=== PATIENT | female | born 1940 | race Caucasian/White ===

== ENCOUNTER → 2018-09-11 11:03 | Outpatient (CLI) | payer MEDICARE, BC, SELFPAY ==
[2014-01-08 12:18] VITALS: BMI 23.5
[2018-09-11 12:56] LABS: Anion Gap 11 (5-15); BUN 21 mg/dL (7-18); BUN/Creat Ratio 23.4 RATIO (10-20); Calcium,Total 9.3 mg/dL (8.5-10.1); Chloride 104 mmol/L (98-107); Cholesterol 275 mg/dL (200); EST Glomerular Filtration Rate 65 mL/min (>60); Est Glom Filt Rate - Afr Amer 79 mL/min (>60); Glucose 88 mg/dL (74-106); High Density Lipoprotein 90 mg/dL; Potassium 4.4 mmol/L (3.5-5.1); Sodium Level 141 mmol/L (136-145); Triglycerides 131 mg/dL; Very Low Density Lipoprotein 26 mg/dL (5-40)
== END ==
PROVIDERS: Family Provider Family Medicine; PCP Family Medicine; Visit Provider Family Medicine
DX: Z00.00 Encounter for general adult medical examination without abnormal findings (principal)
CPT/HCPCS: 36415; 80048; 80061; 84443

== ENCOUNTER → 2018-09-15 16:41 | Outpatient (CLI) | payer MEDICARE, BC, SELFPAY ==
--- NOTE | 2018-09-15 16:45 | BI_ITS ---
MAMMOGRAPHY - BILATERAL SCREENING REASON FOR EXAM: Female, 78 years old. Routine annual screening examination. PERTINENT HISTORY: Non-contributory. TECHNIQUE: Digital bilateral breast phuong (3D mammographic acquisition) in the CC and MLO projections. 2-D mediolateral oblique (MLO) and craniocaudad (CC) views of both breasts were obtained. CAD: Full Field Digital Mammography with Computer Added Detection was performed. COMPARISON: Comparison is made with prior study dated June 29, 2017 and September 11, 2010. FINDINGS: Breast Composition: There are scattered areas of fibroglandular density. There are no dominant masses or suspicious calcifications. Stable small bilateral axillary lymph nodes. No other significant abnormalities are identified. There has been no significant change since the prior study. BI/SCREENING MAMM (CAD), BILAT IMPRESSION: Stable bilateral screening mammogram. Yearly follow-up mammogram recommended. (A) ASSESSMENT CATEGORY: BIRADS Category 2: Benign. A letter regarding these results will be sent to the patient by the facility within 30 days. Approximately 10% of breast cancers are not detected by mammography. A normal mammogram should not delay biopsy of a clinically suspicious abnormality. [id number] Electronically Signed: Goyo Rajput MD at 9:37 EST Tel [phone], Service support ,
== END ==
PROVIDERS: Family Provider Family Medicine; PCP Family Medicine; Referring Provider Family Medicine; Visit Provider Family Medicine
DX: Z12.31 Encounter for screening mammogram for malignant neoplasm of breast (principal)
CPT/HCPCS: 77063; 77067

== ENCOUNTER 2020-10-25 12:34 | Outpatient (RCR) | payer MEDICARE, BC, SELFPAY ==
[2014-01-08 12:18] VITALS: BMI 23.5
== END 2020-10-25 23:59 ==
LOC: IMMUN 12:34
PROVIDERS: PCP Family Medicine; Visit Provider Family Medicine
DX: Z23 Encounter for immunization (principal)
CPT/HCPCS: 0011A; 0012A; 91301

== ENCOUNTER → 2021-03-05 09:56 | Outpatient (CLI) | payer MEDICARE, BC, SELFPAY ==
[2014-01-08 12:18] VITALS: BMI 23.5
[2021-03-05 11:58] LABS: Absolute Lymphocyte Count 1.66 X10^3/uL (0.83-4.51); Basophil# 0.06 X10^3/uL; Basophil% 0.9 % (0-1); Eosinophil# 0.42 X10^3/uL; Eosinophils% 6.4 % (0-5); Hematocrit 40.2 % (37-47); Hemoglobin 12.7 g/dL (12.0-15.0); Lymphocyte # 1.66 X10^3/ul (0.83-4.51); Lymphocyte % 25.2 % (19-41); Mean Corp Hgb Conc 31.6 g/dL (32-36); Mean Corpuscular Hgb 29.3 pg (27.0-32.0); Mean Corpuscular Volume 92.6 fL (81-99); Mean Platelet Vol. 9.5 fl (6.2-12.0); Monocyte# 0.42 X10^3/uL; Monocyte% 6.4 % (0-10); NRBC Flagged by Analyzer 0 % (0-5); Neutrophil # 4.01 X10^3/uL (2.7-7.7); Neutrophil % 60.8 % (47-70); Platelet Count 338 K/mm3 (150-450); RBC Distribution Width CV 13.1 % (11.6-14.6); RBC Distribution Width SD 44.1 fl (35.1-43.9); Red Blood Count 4.34 M/mm3 (4.2-5.4); White Blood Count 6.6 K/mm3 (4.4-11.0)
[2021-03-05 12:23] LABS: ALB/GLOB Ratio 0.8 RATIO (0.9-2.4); AST(SGOT) 17 U/L (15-37); Alanine Aminotransfer ALT/SGPT 17 U/L (13-56); Albumin, Serum 3.3 g/dL (3.2-5.0); Alkaline Phosphatase 66 U/L (45-117); Anion Gap 3 (5-15); BUN 19 mg/dL (7-18); BUN/Creat Ratio 19.5 RATIO (10-20); Calcium,Total 9.5 mg/dL (8.5-10.1); Chloride 106 mmol/L (98-107); Cholesterol 237 mg/dL (200); Creatinine, Serum 0.97 mg/dL (0.55-1.02); EST Glomerular Filtration Rate 59 mL/min (>60); Est Glom Filt Rate - Afr Amer 71 mL/min (>60); Globulin 4.2 g/dL (2.2-4.2); Glucose 86 mg/dL (74-106); High Density Lipoprotein 77 mg/dL; Potassium 4.3 mmol/L (3.5-5.1); Protein, Total 7.5 g/dL (6.4-8.2); Sodium Level 140 mmol/L (136-145); Triglycerides 100 mg/dL; Very Low Density Lipoprotein 20 mg/dL (5-40)
== END ==
PROVIDERS: PCP Family Medicine; Referring Provider Registered Nurse; Visit Provider Registered Nurse
DX: Z00.00 Encounter for general adult medical examination without abnormal findings (principal)
CPT/HCPCS: 36415; 80053; 80061; 85025

== ENCOUNTER → 2021-08-09 09:06 | Outpatient (CLI) | payer MEDICARE, BC, SELFPAY ==
--- NOTE | 2021-08-09 09:08 | RAD_ITS ---
STUDY: X-RAY CHEST REASON FOR EXAM: Female, 80 years old. right rib pain TECHNIQUE: PA and lateral views of the chest. COMPARISON: None. FINDINGS: There is hyperinflation of the lungs consistent with chronic obstructive lung disease (COPD). Chronic interstitial lung disease in the lung bases. Probable scarring in the lung bases Normal size heart. Normal mediastinum and kelly. Normal visualized pulmonary arteries. Normal visualized aortic arch and descending thoracic aorta. Normal visualized thoracic spine. Normal visualized ribs, clavicles, and shoulders. There is no demonstrated abnormality of the visualized soft tissue structures of the upper abdomen. RAD/Chest PA and Lateral IMPRESSION: COPD without acute findings. No evidence of rib fracture Electronically Signed: Dennis Benavidez DO at 3:37 EST Tel , Service support ,
== END ==
PROVIDERS: PCP Family Medicine; Referring Provider Nurse Practitioner Family; Visit Provider Nurse Practitioner Family
DX: R07.81 Pleurodynia (principal)
CPT/HCPCS: 71046

== ENCOUNTER 2021-08-10 09:34 | Emergency (ER) | payer MEDICARE, BC, SELFPAY ==
[2021-08-10 09:35] VITALS: BP 116/64; PULSE 79; RESP 14; TEMP 36.1; O2SAT 98; BMI 24.8
--- NOTE | 2021-08-10 10:27 | CT_ITS ---
STUDY: CT ABDOMEN AND PELVIS WITHOUT CONTRAST REASON FOR EXAM: Female, 80 years old. Kidney Stone RADIATION DOSAGE (If Supplied By Facility): CTDIvol = ( 6.46 ) mGy, DLP = ( 309.21 ) mGycm TECHNIQUE: Transaxial images were obtained from the dome of the diaphragm to the symphysis pubis without oral contrast, and without intravenous contrast. Sagittal and coronal images were reconstructed. Individualized dose optimization techniques were used for this CT. COMPARISON: Comparison is made with prior study 01/08/2014. FINDINGS: Right basilar pulmonary infiltrate superimposed chronic interstitial fibrosis. Mild increased markings at the left lung base suggestive of scarring. The visualized portions of the heart are within normal limits. Normal liver. Mildly distended gallbladder. Normal spleen. Normal pancreas. Normal bilateral adrenal glands. Normal right kidney. Normal left kidney. Normal visualized stomach. Normal small intestine. Normal colon. The appendix is visualized and appears normal. There is diffuse atherosclerotic calcification of the abdominal aorta, without a demonstrated aneurysm. Normal inferior vena cava. Normal retroperitoneum. Normal urinary bladder. Normal abdominal wall. There are mild degenerative changes of the visualized lumbar spine. Minimal anterolisthesis of L4 on L5. CT/Abdomen/Pelvis without Cont IMPRESSION: Right basilar infiltrate superimposed on chronic bibasilar pulmonary scarring. Electronically Signed: Goyo Rajput MD at 13:29 EST , Service support ,
--- NOTE | 2021-08-10 10:31 | EDS_ITS ---
HPI HPI - GI History of Present Illness Chief Complaint: Back Narrative Narrative: Patient denies significant past medical history presents with her because of right-sided flank pain that began yesterday morning. She states the day before she felt fatigued and tired. Early morning she awoke with right-sided back pain. Today, it has moved to the front and started wrapping around. She denies any fevers or chills. No dysuria or hematuria. No nausea or vomiting. However, she did see the nurse practitioner at her primary care provider's office yesterday because of the pain, and a chest x-ray was obtained which was negative. She states that she coughed this morning a few times and had blood-tinged sputum. She denies any marisa hemoptysis. No shortness of breath. She is having pain more in the right flank. No prior surgeries to her abdomen. [facility] Medical History Pyelitis Shingles Home Medications ascorbate calcium (vitamin C) 500 mg PO DAILY 01/08/14 [History Last Taken Unknown] cholecalciferol (vitamin D3) [Vitamin D3] 1,000 unit PO DAILY 01/08/14 [History Last Taken Unknown] Allergy/AdvReac Type Severity Reaction Status Date / Time Sulfa (Sulfonamide Allergy Hives Verified 08/10/21 09:35 Antibiotics) Surgical History H/O hernia repair Social History Smoking Status: Former smoker ROS ROS ED ROS Narrative Constitutional: No fever, no chills. HEENT: No sore throat. No neck pain. No loss of vision. No rhinorrhea. Cardiovascular: No chest pain. No palpitations. No pedal edema. Respiratory: Positive cough, no shortness of breath. Positive blood-tinged sputum. Abdominal: Right-sided abdominal pain. No nausea. No vomiting. Genitourinary: No dysuria. No hematuria. Musculoskeletal: No myalgias. No arthralgias. Positive right back/flank pain. Neurologic: No headaches. No dizziness. No lightheadedness. Skin: No rash. No change in color. Psychiatric: No depression. No anxiety. EXAM Physical Exam Narrative Exam Narrative: Afebrile. Vital signs noted. HEENT: Normocephalic. Atraumatic. PERRL, EOMI. Neck soft and supple. No point tenderness or step off. Cardiovascular: Regular rate and rhythm. No murmurs, rubs, or gallops appreciated. Respiratory: No tachypnea. Lungs clear to auscultation bilaterally. No hemoptysis on examination. Gastrointestinal: Abdomen soft, minimal tenderness right flank, with normoactive bowel sounds. No rebound or guarding. Neurological: Awake. Alert. Nonfocal, nonlateralizing. Skin: No rash. Normal color. No pallor. Musculoskeletal: No pedal edema. Full range of motion extremities. Const Vital Signs: 08/10/21 09:35 08/10/21 12:00 Temperature 97 F L Temperature Source Temporal Pulse Rate 79 73 Respiratory Rate 14 16 Blood Pressure 116/64 119/93 H Blood Pressure Mean 81 101 Pulse Ox 98 96 Oxygen Delivery Method Room Air Room Air MDM MDM MDM Narrative Medical decision making narrative: Comprehensive work-up was pursued. I reviewed her x-ray from yesterday. There is evidence of COPD, but no infiltrate. She may have more of a bronchitis. She will be swabbed for Covid. Her pulse ox is 98% on room air. Regarding her right back and flank pain, suspicion is high for ureterolithiasis given the radiation of pain towards the front. Basic laboratory work, urinalysis, and CT of the abdomen and pelvis without contrast will be obtained. She was administered morphine and ondansetron for analgesia. She has a slightly elevated white count of 15.8 which I think is nonspecific, hemoglobin normal at 15.8. Her electrolyte panel shows a creatinine of 1.53 with a BUN of 22. Urinalysis is positive for leukocyte esterase, however WBCs 0-5 and within normal limits with no bacteria. Her CT of the abdomen and pelvis without contrast shows no evidence of ureteral stone or hydronephrosis. There is a noted right basilar infiltrate superimposed on scarring. I discussed with her the use of antibiotics. She states that she has doxycycline at home from the fall from when she had a tick bite and would prefer to take that. She was instructed to take 1 pill twice a day. Her pulse ox is normal. She will take [id number] analgesics for the pain. She may be having more of a lumbar radiculopathy for her flank pain. At this point in time, I feel she be discharged safely home with follow-up. Return instructions to the emergency department were reviewed. I think that her blood-tinged sputum is more from the possible pneumonia seen on CT scan. Disposition is discharged home in stable condition. Lab Data Attestation: I reviewed the patient's lab results. Labs: Laboratory Results - last 24 hr 08/10/21 08/10/21 08/10/21 10:40 10:45 10:45 WBC 15.8 H RBC 4.22 Hgb 12.8 Hct 38.2 MCV 90.5 MCH 30.3 MCHC 33.5 RDW Std Deviation 44.2 H RDW Coeff of Carl 13.2 Plt Count 234 MPV 8.8 Immature Gran % (Auto) 0.300 Neut % (Auto) 87.4 H Lymph % (Auto) 6.2 L [place] % (Auto) 5.7 Eos % (Auto) 0.1 Baso % (Auto) 0.3 Absolute Neuts (auto) 13.8 H Absolute Lymphs (auto) 0.98 Nucleated RBC % 0 Sodium 136 Potassium 3.9 Chloride 103 Carbon Dioxide 25.0 Anion Gap 8 BUN 22 H Creatinine 1.53 H Estim Creat Clear Calc 26.17 Est GFR (MDRD) Af Amer 42 L Est GFR (MDRD) Non-Af 35 L BUN/Creatinine Ratio 14.4 Glucose 108 H Calcium 9.6 Urine Color Yellow Urine Clarity Clear Urine pH 5.0 Ur Specific Loving 1.020 Urine Protein 15 H Urine Glucose (UA) Normal Urine Ketones 15 H Urine Occult Blood 10 H Urine Nitrite Negative Urine Bilirubin Negative Urine Urobilinogen Normal Ur Leukocyte Esterase 25 H Urine RBC 0 SEEN Urine WBC 0-5 SEEN Ur Squamous Epith Cells 0-5 SEEN Urine Bacteria 0 SEEN Urine Mucus 0 SEEN Radiography Diagnostic Testing: Clinical Impression(s) from Imaging Studies Abdomen/Pelvis CT 08/10/21 10:27 IMPRESSION: Right basilar infiltrate superimposed on chronic bibasilar pulmonary scarring. Electronically Signed: Goyo Rajput MD at 13:29 EST , Service support , Discharge Plan Triage Chief Complaint: Back ED Provider: Jimi Husain Dx/Rx/DC Orders Clinical Impression: Acute right flank pain, Back pain, Pneumonia, Coughing up blood Prescriptions: No Action ascorbate calcium (vitamin C) 500 MG tablet 500 mg PO DAILY RF: 0 cholecalciferol (vitamin D3) [Vitamin D3] 1,000 UNIT capsule 1,000 unit PO DAILY RF: 0 Primary Care Provider: Jorge Quiñonez Referrals: Jorge Quiñonez MD [Primary Care Provider] - 08/14/21 Disposition Disposition: Home, Self Care
[2021-08-10 10:54] LABS: Absolute Lymphocyte Count 0.98 X10^3/uL (0.83-4.51); Absolute Neutrophil Count 13.8 X10^3/uL (2.0-7.7); Basophil# 0.04 X10^3/uL; Basophil% 0.3 % (0-1); Eosinophil# 0.01 X10^3/uL; Eosinophils% 0.1 % (0-5); Hematocrit 38.2 % (37-47); Hemoglobin 12.8 g/dL (12.0-15.0); Lymphocyte # 0.98 X10^3/ul (0.83-4.51); Lymphocyte % 6.2 % (19-41); Mean Corp Hgb Conc 33.5 g/dL (32-36); Mean Corpuscular Hgb 30.3 pg (27.0-32.0); Mean Corpuscular Volume 90.5 fL (81-99); Mean Platelet Vol. 8.8 fl (6.2-12.0); Monocyte% 5.7 % (0-10); NRBC Flagged by Analyzer 0 % (0-5); Neutrophil % 87.4 % (47-70); Platelet Count 234 K/mm3 (150-450); RBC Distribution Width CV 13.2 % (11.6-14.6); RBC Distribution Width SD 44.2 fl (35.1-43.9); Red Blood Count 4.22 M/mm3 (4.2-5.4); White Blood Count 15.8 K/mm3 (4.4-11.0)
[2021-08-10 10:54] LABS: Bacteria 0 SEEN /hpf (None Seen); Mucous, Urine 0 SEEN /hpf (<or=2+); Red Blood Cells-Urine 0 SEEN /hpf (0-5)
[2021-08-10 10:56] LABS: Color, Urine Yellow (Yellow); Glucose, Dipstick Normal (Normal); Ketone-Dipstick 15 mg/dl (Negative); Leukocyte Esterase-Dipstick 25 /ul (Negative); Nitrite-Dipstick Negative (Negative); Occult Blood-Urine 10 /ul (Negative); Protein-Dipstick 15 mg/dl (Negative); Urine Bilirubin Dipstick Negative (Negative); Urine Clarity Clear (Clear); Urine Urobilinogen Normal (Normal)
[2021-08-10] MEDS: Ondansetron 4 MG/2 ML Vial IV (11:01)
[2021-08-10] MEDS: Ketorolac 15 MG/ML Vial IV (11:01)
[2021-08-10 11:02] LABS: Squamous Epithelial Cells - UA 0-5 SEEN /hpf (5-10); White Blood Cells 0-5 SEEN /hpf (0-5)
[2021-08-10 11:11] LABS: Anion Gap 8 (5-15); BUN 22 mg/dL (7-18); BUN/Creat Ratio 14.4 RATIO (10-20); Calcium,Total 9.6 mg/dL (8.5-10.1); Chloride 103 mmol/L (98-107); Creatinine, Serum 1.53 mg/dL (0.55-1.02); EST Glomerular Filtration Rate 35 mL/min (>60); Est Glom Filt Rate - Afr Amer 42 mL/min (>60); Estimated Creatinine Clearance 26.17 ml/min; Glucose 108 mg/dL (74-106); Potassium 3.9 mmol/L (3.5-5.1); Sodium Level 136 mmol/L (136-145)
[2021-08-10 12:00] VITALS: BP 119/93; PULSE 73; RESP 16; O2SAT 96
== END 2021-08-10 14:25 | disposition home or self-care (01) ==
PROVIDERS: Emergency Provider Emergency Medicine; PCP Family Medicine
DX: R10.9 Unspecified abdominal pain (principal); M54.9 Dorsalgia, unspecified; J18.9 Pneumonia, unspecified organism; R04.2 Hemoptysis; J44.9 Chronic obstructive pulmonary disease, unspecified; Z87.891 Personal history of nicotine dependence
CPT/HCPCS: 74176; 80048; 81001; 85025; 87426; 99283; A4216; J2405

== ENCOUNTER → 2022-03-26 | Outpatient (CLI) | payer MEDICARE, BC, SELFPAY ==
[2022-03-26 12:15] LABS: Absolute Lymphocyte Count 1.53 X10^3/uL (0.83-4.51); Basophil# 0.06 X10^3/uL; Basophil% 0.9 % (0-1); Eosinophil# 0.49 X10^3/uL; Eosinophils% 7.7 % (0-5); Hematocrit 36.8 % (37-47); Hemoglobin 11.7 g/dL (12.0-15.0); Lymphocyte # 1.53 X10^3/ul (0.83-4.51); Mean Corp Hgb Conc 31.8 g/dL (32-36); Mean Corpuscular Hgb 29.8 pg (27.0-32.0); Mean Corpuscular Volume 93.6 fL (81-99); Mean Platelet Vol. 9.5 fl (6.2-12.0); Monocyte# 0.33 X10^3/uL; Monocyte% 5.2 % (0-10); NRBC Flagged by Analyzer 0 % (0-5); Neutrophil # 3.95 X10^3/uL (2.7-7.7); Neutrophil % 61.9 % (47-70); Platelet Count 313 K/mm3 (150-450); RBC Distribution Width SD 44.8 fl (35.1-43.9); Red Blood Count 3.93 M/mm3 (4.2-5.4); White Blood Count 6.4 K/mm3 (4.4-11.0)
[2022-03-26 12:36] LABS: Vitamin B12 297 pg/mL (211-911); Vitamin D,25 Hydroxy 35.1 ng/mL
[2022-03-26 12:48] LABS: ALB/GLOB Ratio 0.8 RATIO (0.9-2.4); AST(SGOT) 17 U/L (15-37); Alanine Aminotransfer ALT/SGPT 16 U/L (13-56); Albumin, Serum 3.2 g/dL (3.2-5.0); Alkaline Phosphatase 61 U/L (45-117); Anion Gap 6 (5-15); BUN 22 mg/dL (7-18); BUN/Creat Ratio 20.6 RATIO (10-20); Calcium,Total 9.2 mg/dL (8.5-10.1); Chloride 107 mmol/L (98-107); Creatinine, Serum 1.07 mg/dL (0.55-1.02); EST Glomerular Filtration Rate 53 mL/min (>60); Est Glom Filt Rate - Afr Amer 64 mL/min (>60); Glucose 83 mg/dL (74-106); Potassium 4.5 mmol/L (3.5-5.1); Protein, Total 7.2 g/dL (6.4-8.2); Sodium Level 141 mmol/L (136-145); Thyroid Stim Hormone (TSH) 3.64 uIU/mL (0.358-3.74)
[2022-03-26 16:32] LABS: Ferritin 29 ng/mL (8-252); Iron 68 ug/dL (50-170); Iron Binding Capacity,Total 367 ug/dL (250-450)
== END | disposition home or self-care (01) ==
LOC: MFPLAB 10:30
PROVIDERS: PCP Family Medicine; Visit Provider Nurse Practitioner Family
DX: R53.83 Other fatigue (principal); D64.9 Anemia, unspecified; Z13.1 Encounter for screening for diabetes mellitus
CPT/HCPCS: 36415; 80053; 82306; 82607; 82728; 83540; 83550; 84443; 85025

== ENCOUNTER → 2022-04-10 | Outpatient (CLI) | payer MEDICARE, BC, SELFPAY ==
--- NOTE | 2022-04-10 13:25 | BI_ITS ---
MAMMOGRAPHY - BILATERAL SCREENING 3-D TOMOSYNTHESIS REASON FOR EXAM: Female, 81 years old. Annual screening mammogram. PERTINENT HISTORY: No significant family history. TECHNIQUE: 2-D mammograms and 3-D Tomosynthesis of the breast (s) were performed. CAD was performed. COMPARISON: 09/15/2018, 10/30/2016. FINDINGS: The breast composition is almost entirely fat. Scattered benign calcifications and lymph nodes, unchanged. No dense spiculated masses or suspicious microcalcifications are identified. No architectural distortion is identified. There is no skin thickening or retraction. BI/SCRN MAMM (CAD)W/ANN BILAT IMPRESSION: No interval change and no mammographic signs of malignancy. Routine yearly mammograms recommended. ASSESSMENT CATEGORY: BIRADS Category 2: Benign. A letter regarding these results will be sent to the patient by the facility within 30 days. FOLLOW UP RECOMMENDATION: Yearly follow up mammogram recommended. (A) Approximately 10% of breast cancers are not detected by mammography. A normal mammogram should not delay biopsy of a clinically suspicious abnormality. Electronically Signed: Ricardo Macdonald MD at 15:12 EDT ,
== END | disposition home or self-care (01) ==
LOC: OPBI 13:22
PROVIDERS: PCP Family Medicine; Visit Provider Nurse Practitioner Family
DX: Z12.31 Encounter for screening mammogram for malignant neoplasm of breast (principal)
CPT/HCPCS: 77063; 77067

== ENCOUNTER → 2023-01-24 | Outpatient (CLI) | payer MEDICARE, BC, SELFPAY ==
--- NOTE | 2023-01-24 11:16 | US_ITS ---
STUDY: SUPERFICIAL ULTRASOUND - POSSIBLE JANSEN''S CYST. REASON FOR EXAM: Female, 82 years old. Bilateral jansen''s cysts. Provide bilateral popliteal space ultra TECHNIQUE: A superficial ultrasound was performed with real-time and static jimenez-scale imaging. COMPARISON: None. FINDINGS: The popliteal fossa was examined with ultrasound. No sonographic abnormality is seen. IMPRESSION: No sonographic abnormality is seen. Electronically Signed: Goyo Rajput MD at 14:19 EDT , STUDY: SUPERFICIAL ULTRASOUND - REASON FOR EXAM: Female, 82 years old. Bilateral jansen''s cysts. Probable bilateral popliteal space. TECHNIQUE: A superficial ultrasound was performed with real-time and static jimenez-scale imaging. COMPARISON: None. FINDINGS: Imaging of the left popliteal fossa was performed with ultrasound. No sonographic abnormality is seen. US/Ext Non Vasc Limited/Soft Tiss IMPRESSION: No sonographic abnormality is seen. Electronically Signed: Goyo Rajput MD at 14:20 EDT ,
== END | disposition home or self-care (01) ==
LOC: US 11:14
PROVIDERS: PCP Family Medicine; Referring Provider Family Medicine; Visit Provider Family Medicine
DX: M71.20 Synovial cyst of popliteal space [Baker], unspecified knee (principal)
CPT/HCPCS: 76882

== ENCOUNTER → 2023-04-30 | Outpatient (CLI) | payer MEDICARE, BC, SELFPAY ==
--- NOTE | 2023-04-30 11:24 | BD_ITS ---
STUDY: DUAL ENERGY X-RAY ABSORPTIOMETRY / DXA REASON FOR EXAM: Female, 82 years old. 627.8Menopausal postmenopausal BONE DENSITY REASON FOR EXAM TECHNIQUE: Bone Mineral Density (BMD) measurements of lumbar spine and bilateral hips were obtained. COMPARISON: Comparison is made with prior study dated September 11, 2010. FINDINGS: Lumbar Spine (L1-L4): g/cm2 (0.752) / T-score (-2.8) / Z-score (0.0) Findings are suggestive of osteoporosis with a high fracture risk. Left Femur Total: g/cm2 (0.686) / T-score (-2.1) / Z-score (0.0) Left Femoral Neck: g/cm2 (0.626) / T-score (-2.0) / Z-score (0.3) Right Femur Total: g/cm2 (0.733) / T-score (-1.7) / Z-score (0.4) Right Femoral Neck: g/cm2 (0.745) / T-score (-0.9) / Z-score (1.4) The T-Scores on the most recent prior examination were: Lumbar Spine (L1-L4): There has been worsening of bone density since the previous examination. Left Femur Total: which represents a worsening of 16.9%. Right Femur Total: which represents a worsening of 13%. BD/Dexa Bone Density Study IMPRESSION: The patient is considered osteoporotic as outlined below according to World [employer] Organization (WHO) criteria with a high fracture risk. There has been worsening of bone density since the previous examination. Reference Information: The T-score is the number of standard deviations above or below the standard which is normal for young adults at their peak bone mineral density. The World Health Organization (WHO) interprets the T-scores as follows: Above -1 Normal bone density Between -1 and -2.5 Osteopenia Equal to / or below -2.5 Osteoporosis As a practical clinical guideline, osteopenia may be graded as follows: Mild -1 through -1.5 Moderate -1.6 through -2.0 Severe -2.1 through -2.4 The Z-score is the number of standard deviations above or below age-matched controls. A Z-score of less than -1.5 would be considered abnormal. References: 1. NIH Osteoporosis and Related Bone Diseases www osteo.org 2. International Society for Clinical Densitometry www iscd.org 3. National Osteoporosis Foundation www nof.org Electronically Signed: Goyo Rajput MD at 14:27 EDT ,
== END | disposition home or self-care (01) ==
LOC: OPBD 11:19
PROVIDERS: PCP Family Medicine; Referring Provider Family Medicine; Visit Provider Family Medicine
DX: N95.9 Unspecified menopausal and perimenopausal disorder (principal)
CPT/HCPCS: 77080

== ENCOUNTER → 2023-05-28 | Outpatient (CLI) | payer MEDICARE, BC, SELFPAY | END | disposition home or self-care (01) | LOC: LABSPEC 11:42 | PROVIDERS: PCP Family Medicine; Visit Provider Nurse Practitioner Family | DX: R30.9 Painful micturition, unspecified (principal) | CPT/HCPCS: 87086; 87088; 87186 ==

== ENCOUNTER → 2024-03-10 | Outpatient (CLI) | payer MEDICARE, BC, SELFPAY ==
--- NOTE | 2024-03-10 14:45 | NEURO ---
NCS and/or EMG Patient Report Ordering Doctor: Bay Langley DATE OF SERVICE: 03/10/24 Ayleen presents for electrodiagnostic testing of the upper limbs. She reports numbness and tingling in both hands. Electrodiagnostic findings:The left median motor nerve demonstrates significantly prolonged distal latency with reduced amplitude normal conduction velocity. Right median motor nerve demonstrates normal distal latency and amplitude with reduced conduction velocity. Ulnar motor responses is within normal limits bilaterally. Prolonged left median F?wave. Absent left median sensory latency at the wrist. Prolonged left median palmar latency. Prolonged right median sensory latency at the wrist. Needle EMG testing was performed in the upper limbs. All muscles tested showed no evidence of denervation with normal motor unit action potentials. Electrodiagnostic assessment: This is an abnormal study. 1. Electrodiagnostic findings suggestive of bilateral median mononeuropathy. This is consistent with a severe left carpal tunnel syndrome and a mild to moderate right carpal tunnel syndrome Multi Select Codes Neurology Neurology Interp Codes: 24925-96 Musc test done w/n test comp (interp) (2) and 67291-10 Nr cndj test 13/> studies (interp)
== END | disposition home or self-care (01) ==
LOC: PSN 13:13
PROVIDERS: PCP Family Medicine; Referring Provider Orthopaedic Surgery; Visit Provider Orthopaedic Surgery
DX: G56.03 Carpal tunnel syndrome, bilateral upper limbs (principal)
CPT/HCPCS: 95886; 95913

== ENCOUNTER 2024-03-30 05:49 | Day surgery (SDC) | payer MEDICARE, BC, SELFPAY ==
[2024-03-30] VITALS (8 sets, daily range): BP systolic 98–113; BP diastolic 51–67; PULSE 61–70; RESP 14–16; TEMP 36.4–36.7; O2SAT 93–98; BMI 26.8
[2024-03-30] MEDS: Lactated Ringers 1,000 ML 15 ML IV (06:32)
--- NOTE | 2024-03-30 07:08 | PRE.ANES_ITS ---
ASA Classification* ASA Classification ASA Classification: 2 Assessment & Plan Anesthesia* Anesthesia Assessment Anesthesia Assessment: Discussed sedation and/or anesthesia options, risks, benefits, and alternatives with patient/parents/legal guardian/POA. Questions invited. The patient/parents/legal guardian/POA seems to understand and agrees to proceed with anesthesia plan. Reviewed the physical assessment, medical history, allergy history and patient home medications list prior to surgery/procedure/anesthetic and documented any changes. Performed airway and anesthesia risk assessments. Anesthesia Type Anesthesia Type: MAC Anesthesia Focused Assessment* Temperature: 97.8 F Pulse Rate: 70 Blood Pressure: 113/51 Respiratory Rate: 16 Pulse Ox: 98 Airway Assessment Mouth opens: >3 cm Mallampati Score: II Focused Labs Anesthesia Preop lab: CBC WBC 6.4 K/mm3 (4.4-11.0) 03/26/22 10:32 RBC 3.93 M/mm3 (4.2-5.4) L 03/26/22 10:32 Hgb 11.7 g/dL (12.0-15.0) L 03/26/22 10:32 Hct 36.8 % (37-47) L 03/26/22 10:32 Plt Count 313 K/mm3 (150-450) 03/26/22 10:32 CHEMISTRY Potassium 4.5 mmol/L (3.5-5.1) 03/26/22 10:30 Sodium 141 mmol/L (136-145) 03/26/22 10:30 BUN 22 mg/dL (7-18) H 03/26/22 10:30 Creatinine 1.07 mg/dL (0.55-1.02) H 03/26/22 10:30 Glucose 83 mg/dL (74-106) 03/26/22 10:30 TSH 3.64 uIU/mL (0.358-3.74) 03/26/22 10:30 COAG Pre-Assessment Diagnosis/Proposed Procedure Planned Operative Procedure(s): LEFT OPEN CARPAL TUNNEL RELEASE Anesthesia History 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 When Was Last Pacemaker Check QUESTION #4 FULL TEXT: You/Your Family Experience fever (hyperthermia) with Anesthesia Last Oral Intake Last Oral intake: Last Oral Intake NPO since Meds taken in AM with sips of No 03/30/24 06:19 water? Meds patient instructed to take am of surgery PONV PONV - auction assistant: PONV - auction assistant Female Yes 03/25/24 09:17 HX of Motion Sickness No 03/25/24 09:17 HX of N/V After Surgery No 03/25/24 09:17 Non-Smoker Yes 03/25/24 09:17 Duration of Surgery greater No 03/25/24 09:17 than 60 minutes Number of Risk Factors 2 03/25/24 09:17 PONV Score Moderate Risk 03/25/24 09:17 Height & Weight Height & Weight: Anesthesia: Height & Weight Height 5 ft 3 in 03/30/24 06:19 Weight: 68.765 kg 03/30/24 06:19 Body Mass Index (BMI) 26.8 03/30/24 06:19 Respiratory Assessment Respiratory Assessment - auction assistant: Respiratory Tract Infection Hx - auction assistant Hx Respiratory Tract Infection No 03/25/24 09:17 STOP Sleep Apnea STOP Sleep Apnea - auction assistant: STOP Sleep Apnea - auction assistant Hx Hypertension No 03/25/24 09:17 Hx Sleep Apnea No 03/25/24 09:17 CPAP No 01/08/14 14:56 BIPAP No 01/08/14 12:18 Do you snore loudly (louder No 03/25/24 09:17 than talking or can be heard Do you often feel tired/ No 03/25/24 09:17 fatigued/ sleepy during daytime? Has anyone observed you stop No 03/25/24 09:17 breathing during sleep? STOP Results Negative 03/25/24 09:17 QUESTION #5 FULL TEXT : Do you snore loudly (louder than talking or can be heard through closed doors)? 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 Specify any problems Hx of Preganancy in last 3 No 03/25/24 09:17 Months Nurse Filling Out Transfusion DSCHRIBER 03/25/24 09:17 & Questions: Date: 03/25/24 03/25/24 09:17 Time: 09:18 03/25/24 09:17 Patient unable to answer at this time (ie. confused, unrespo /Reproduction History /Reproductive History - auction assistant: /Reproductive Hx- auction assistant Hx Now No 03/25/24 09:17 Gestational Age (in weeks): EDC: Hx Hx Para Hx Section SAB No 03/25/24 09:17 Active Medications Active Medications: Current Medications Generic Name Dose Route Start Last Admin Trade Name Freq PRN Reason Stop Dose Admin Cefazolin Sodium 2 gm/ Sodium 110 mls @ 150 mls/hr 03/30/24 07:30 Chloride IV 03/30/24 08:13 PREOP ONE Lactated Ringer's 1,000 mls @ 15 mls/hr 03/30/24 06:15 03/30/24 06:32 IV 15 mls/hr .Q48H NICO Administration PFSH Medical History Wears glasses Post-menopausal History of steroid therapy Pyelonephritis History of renal disease Non-smoker Home Medications ?Medication ?Instructions ?Recorded ?Last Taken ?Type ascorbate calcium (vitamin C) 500 500 mg PO DAILY 01/08/14 03/09/24 History mg tablet cholecalciferol (vitamin D3) 25 1,000 unit PO DAILY 01/08/14 03/09/24 History mcg (1,000 unit) capsule (Vitamin D3) ibuprofen 200 mg tablet (Motrin IB) 200 mg PO Q6H PRN pain 02/07/23 03/09/24 History magnesium 250 mg tablet 250 mg PO DAILY 02/07/23 03/09/24 History diphenhydramine 25 1 tab PO QHS PRN sedation 02/11/24 03/09/24 History mg-acetaminophen 500 mg tablet (Tylenol PM Extra Strength) pyridoxine (vitamin B6) 100 mg 100 mg PO QDAY 03/22/24 03/25/24 History tablet Allergy/AdvReac Type Severity Reaction Status Date / Time Sulfa (Sulfonamide Allergy Hives Verified 03/30/24 06:15 Antibiotics) Surgical History Hx of dilation and curettage Hx of colonoscopy Hx of eye surgery H/O hernia repair Social History Smoking Status: Never smoker Review of Systems (Anesthesia) ROS Narrative System reviewed and no additional complaints, except as documented.
[2024-03-30] MEDS: Cefazolin 2 GM in 0.9% Normal Saline (100mL Bag) 100 ML IV (07:22)
--- NOTE | 2024-03-30 07:24 | PCM.HP.BLA ---
History and Physical Date of Admission: 03/30/24 [facility] [address] [place] [address] OFFICE VISIT Date of Service: 03/22/24 MR#: [id number] Acct: [id number] Name: LIAM SALINAS Rep #: [id number] : 1940 Provider: Dr. Bay Langley DO Age/Sex: 83/F Location: [facility] [place] Status: Signed Intake Vital Signs 02/07/2309:30 Height 5 ft 4 in Intake Visit Reasons: BILATERAL HANDS Chief Complaint: B/L hand pain Allergies Sulfa (Sulfonamide Antibiotics) Allergy (Verified 02/11/24 10:31) Hives Medications ?Medication ?Instructions ?Recorded ?Confirmed ?Type ascorbate calcium (vitamin C) 500 500 mg PO DAILY 01/08/14 03/22/24 History mg tablet cholecalciferol (vitamin D3) 25 1,000 unit PO DAILY 01/08/14 03/22/24 History mcg (1,000 unit) capsule (Vitamin D3) ibuprofen 200 mg tablet (Motrin IB) 200 mg PO Q6H PRN 02/07/23 03/22/24 History magnesium 250 mg tablet 250 mg PO DAILY 02/07/23 03/22/24 History calcium carb 333 mg-mag ox 133 tab PO 02/11/24 03/22/24 History mg-D3 1.67 mcg-zinc gluc 5 mg tablet diphenhydramine 25 1 tab PO QHS PRN 02/11/24 03/22/24 History mg-acetaminophen 500 mg tablet (Tylenol PM Extra Strength) famotidine 20 mg tablet mg PO 03/22/24 03/22/24 History pyridoxine (vitamin B6) 100 mg 100 mg PO QDAY 03/22/24 03/22/24 History tablet Have you fallen in the past year?: No PFSH Medical History Pyelitis Shingles Surgical History H/O hernia repair Social History Smoking Status: Former smoker HPI BILATERAL HANDS Details: This documentation accurately reflects the service provided and the decisions made by me, Dr. Bay Langley, DO 03/22/24 0751. Part of today?s visit was documented by Gloria CARVAJAL, acting as scribe. LIAM SALINAS is a 83 year old F here today for bilateral upper extremity EMG follow-up To recall from last visit 02/11/2024: B/L thumb, 1st and 2nd fingers on hands, left worse than right, painful numbness and tingling, electrical or jolt type feeling nearly constantly. No sensation to finger tips on left hand, decreased sensation and worsening on fingers on right hand. Pain may radiate to elbow. Hx cortisone shot for left hand many years ago at [facility] in [place]. Positive effect for many years. At least over last 3 years have symptoms progressively worsened, near constant pain over last year. Difficulty with ADL's. Difficulty sleeping. Wears brace on left hand during night and takes Tylenol PM. Will stretch hand and fingers without relief. Numbness and tingling is worse in the left hand. Patient was suspected of having carpal tunnel syndrome bilaterally left worse than right. She has had symptoms for years. She has had previous left sided injection with relief. She has been wearing braces for 3 years at night. Symptoms have progressively gotten worse was noted to have some atrophy, and discussed likely diagnosis of carpal tunnel syndrome and expected surgical intervention pending EMG results. And expected postoperative recovery course with weightbearing restrictions EMG was ordered. Patient is here today to review the EMG she had of both hands. She would also like to discuss surgery today as well. She states that she feels that the numbness and tingling is getting worse but she is able to sleep at night now. She also did just finish a Medrol Dose Hiren that was given to her by her PCP for her wrist pain. Ortho Exam General General: Yes no acute distress Neurologic: Yes alert and Yes oriented x3 Psychologic: Yes reasonable and appropriate Right Wrist/Hand Right Wrist: Yes ROM-Extension 0-60, ROM-Flexion 0-80, ROM-Pronation 0-80, ROM-Supination 0-90 and Thenar Atrophy; No Tinel's, Phalen's or Hypothenar Atrophy WRIST: Provocative symptoms or not useful as she has symptoms at rest Left Wrist/Hand Left Wrist: Yes ROM-Extension 0-60, Yes ROM-Flexion 0-80, Yes ROM-Pronation 0-80, Yes ROM-Supination 0-90, Yes Tinel's and Yes Thenar Atrophy WRIST: early thenar atrophy Provocative symptoms or not useful as she has symptoms at rest Head: Normocephalic Atraumatic Chest: symmetrical rise, non-labored breathing, no audible wheeze Abdomen: no guarding, non-rigid Supplemental Info 03/10/2024 EMG bilateral upper extremity: 1. Electrodiagnostic findings suggestive of bilateral median mononeuropathy. This is consistent with a severe left carpal tunnel syndrome and a mild to moderate right carpal tunnel syndrome Coding Level of Care Code Off vis,est,level 4 Diagnoses Bilateral hand numbness R20.0 Assessment and Plan Assessment and Plan (1) Bilateral hand numbness: Status: Acute Plan Patient is quite uncomfortable with her electrical symptoms in her hand and carpal tunnel symptoms. She is aggressive about getting surgery done as soon as possible. I did review her EMG with her and she does have severe left carpal tunnel syndrome and right moderate carpal tunnel syndrome. We did discuss surgical and conservative treatments particularly she is interested in surgical option at this point which would be an open carpal tunnel release in my hands. I did review that she does have permanent damage already to her thenar muscle and the atrophy that is present will not return after carpal tunnel release I also explained to her that in severe cases the surgery may not help with her symptoms at all. However I would expect hope for some improvement and it would be the best option to prevent further atrophy. There is also risk of incisional hypersensitivity pillar pain and increased numbness in the fingers as a nerve begins to awaken which I have seen in severe cases which results in over time this becoming more and more distal until it resolves. I did explain to her she has postoperative restrictions for 3 weeks which I reviewed I encouraged her to move her fingers and wrist right away to avoid stiffness if she does get stiff she may need occupational hand therapy however we not do this routinely. Reviewed the pre-operative plans with the patient. Risks and benefits of the procedure were fully explained, including but not limited to infection, neurovascular injury, continued pain, arthritis, stiffness, need for further surgery, re-injury, DVT, PE, general risks of anesthesia, and loss of limb or life. The patient understands all the risks and does wish to proceed with written consent. Patient wished to proceed with a left open carpal tunnel release first. Spoke with patient that we do one hand at a time and wait 4-6 weeks before proceeding with the other hand. Follow up at 2 weeks post-op or sooner if pain, swelling, numbness or associated symptoms, or concerns develop. All questions answered. I did explain to her she does need to stop the ibuprofen or and any NSAIDs for 7 days before surgery, patient in agreement of plan. Tentative surgery date 03/30/2024 Clinical Quality Measures Falls Risk Screening/Assistive Devices Have you fallen in the past year?: No 03/22/24 1133 <Electronically signed by Bay Langley DO> Date Bay aLngley DO Cosigner Signature: Date (if applicable) I have examined the patient and the H&P has been reviewed. There are no clinical changes since date of exam.
[2024-03-30] MEDS: Bupiv/Epi 0.25% 30 ML Vial (07:44)
--- NOTE | 2024-03-30 07:51 | OP.PCM_ITS ---
Operative Report Date of Procedure: 03/30/24 Preoperative diagnosis; left carpal tunnel syndrome Postoperative diagnosis; same Procedure: Left open carpal tunnel release Anesthesia: Local with MAC Tourniquet time; 10 minutes 250 mm Hg Complications: None Indication for procedure; This is a 83-year-old female with long-standing sym ptoms consistent with carpal tunnel syndrome the patient did have electrodiagnostic evidence of severe carpal tunnel and has failed conservative treatment. Risks benefits and alternatives were reviewed including risks of bleeding infection nerve artery tissue damage need for further surgery and continued pain and symptoms, hypersensitivity to scar and Pillar pain. Procedure; The patient was met in the preoperative holding area the operative extremity was identified by both patient and physician and was marked the patient was met by anesthesia and brought back to the operating room and trans ferred to the operating table in the supine position. Anesthesia was started. A well-padded tourniquet was placed on the operative upper extremity. The patient was prepped and draped in the usual sterile fashion. A timeout was called to ensure the proper patient procedure and extremity were being contemplated. 0.5 percent lidocaine with epinephrine was injected into the incisional area. An Esmarch was used to exsanguinate the extremity. The tourniquet was inflated to 250 mmHg. A midline incision was made with a 15 blade scalpel between the thenar and hypothenar eminence. This was carried down through the skin and subcutaneous tissue. Angela retractors were then used, a deep blade scalpel was used to make a deep incision in the palmar aponeurosis. The angela retractors were then placed deep to this and the transverse carpal ligament was identified a perforation was made with a scalpel and a Littler scissors were used to complete the release of the transverse carpal ligament distally under direct visualization with the tips facing ulnarly until the perivascular fat was reached. Then turning our attention proximally using a tension slide technique the proximal extent of the transverse carpal ligament was released . There was noted to be flattening of the median nerve with thickening of the transverse carpal ligament without other findings. The wound was thoroughly irrigated and was closed with 4-0 nylon vertical mattress stitches. Dressing was applied in the form of xeroform 4 x 4, web roll and an raoul wrap. Tourniquet was let down there is no intraoperative complications patient tolerated the procedure well and was transferred to the PACU. All counts were correct.
--- NOTE | 2024-03-30 07:52 | EX.PCM.DISCH ---
Discharge Instructions Diet Discharge Diet: No restrictions Dressing / Incision Call your doctor if you observe: Shortness of breath and Chest pain Additional Dressing/Incision Instructions:: Ice and elevate operative extremity next 72 hours. Keep dressing on clean and dry for 48 hours then may remove and allow warm soapy water to rinse over incision but do not submerge until sutures are out. Then apply bandaid over incision and change daily. encourage finger range of motion. Not lift more than 1/2 pound. Minimize narcotic use only as needed and directed, may use OTC NSAID and Tylenol to supplement/substitute for pain control. Follow Up Care Please Follow Up With: Bay Langley DO When: 2 weeks Test Results: Test results from this visit will be discussed in further detail at your follow-up appointment, if applicable. Discharge Plan Admission Primary Reason for Your Visit: Left carpal tunnel release Attending Provider: Bay Langley Primary Care Provider: Jorge Quiñonez Instructions Print Language: Icelandic Discharge Orders/Prescriptions Prescriptions: New oxycodone 5 mg tablet 2.5 - 10 mg PO Q4H PRN (Reason: pain) 3 Days Qty: 12 0RF Continued magnesium 250 mg tablet 250 mg PO DAILY ibuprofen [Motrin IB] 200 mg tablet 200 mg PO Q6H PRN (Reason: pain) diphenhydramine-acetaminophen [Tylenol PM Extra Strength] 25-500 mg tablet 1 tab PO QHS PRN (Reason: sedation) pyridoxine (vitamin B6) 100 mg tablet 100 mg PO QDAY ascorbate calcium (vitamin C) 500 MG tablet 500 mg PO DAILY Patient Comments: supplement cholecalciferol (vitamin D3) [Vitamin D3] 1,000 UNIT capsule 1,000 unit PO DAILY Patient Comments: supplement Referrals / Follow Up: Jorge Quiñonez MD [Primary Care Provider] - Disposition Disposition (needs filled in before D/C Order can be placed): Home, Self Care
--- NOTE | 2024-03-30 07:57 | PCM.POST.ANE ---
Anesthesia: Postop Eval I Current Vital Signs Temperature: 98.1 F Pulse Rate: 68 Blood Pressure: 110/52 Respiratory Rate: 16 Pulse Ox: 94 Oxygen Delivery Method: Room Air Assessment Airway patent: Yes Spontaneous unlabored respirations: Yes Mental status: Awake and Calm nausea: No Vomiting: No Anesthesia Complication: No Fluid Hydration Crystalloid volume administer (ml): 500 Total IV fluid infused: 500 Progress Note Anesthesia document: Postop Eval 1 completed: Yes
--- NOTE | 2024-03-30 09:33 | POSTOPAN2_ITS ---
Anesthesia Postop Eval I Sum Postop Eval Completion status Anesthesia document: Postop Eval 1 completed: Yes Anesthesia Postop Eval I Summary Anesthesia Postop Eval I Summary: Anesthesia Postop Eval I: Assessment Summary Airway patent Yes 03/30/24 07:59 [email or web address] Spontaneous unlabored Yes 03/30/24 07:59 [email or web address] respirations Mental status Awake,Calm 03/30/24 07:59 [email or web address] nausea No 03/30/24 07:59 [email or web address] Vomiting No 03/30/24 07:59 [email or web address] Anesthesia Postop Eval I: Fluid Summary Crystalloid volume administer 500 03/30/24 07:59 [email or web address] (ml) Colloids volume administered ( ml) Blood Product volume administered (ml) Total IV fluid infused 500 03/30/24 07:59 [email or web address] Anesthesia Postop Eval I: Summary Notes Anesthesia Complication No 03/30/24 07:59 SEATING [email or web address] Anesthesia Complication Comment: Post-operative progress note Anesthesia: Postop Eval II Evaluation Mental status: Awake and Calm Pain Level: 1 nausea: No Vomiting: No Complications Anesthesia Complication: No
--- NOTE | 2024-03-30 09:33 | PCM.POSTANE2 ---
Anesthesia Postop Eval I Sum Postop Eval Completion status Anesthesia document: Postop Eval 1 completed: Yes Anesthesia Postop Eval I Summary Anesthesia Postop Eval I Summary: Anesthesia Postop Eval I: Assessment Summary Airway patent Yes 03/30/24 07:59 TIE MILL [email or web address] Spontaneous unlabored Yes 03/30/24 07:59 TIE MILL [email or web address] respirations Mental status Awake,Calm 03/30/24 07:59 TIE MILL [email or web address] nausea No 03/30/24 07:59 TIE MILL [email or web address] Vomiting No 03/30/24 07:59 TIE MILL [email or web address] Anesthesia Postop Eval I: Fluid Summary Crystalloid volume administer 500 03/30/24 07:59 TIE MILL [email or web address] (ml) Colloids volume administered ( ml) Blood Product volume administered (ml) Total IV fluid infused 500 03/30/24 07:59 TIE MILL [email or web address] Anesthesia Postop Eval I: Summary Notes Anesthesia Complication No 03/30/24 07:59 TIE MILL [email or web address] Anesthesia Complication Comment: Post-operative progress note Anesthesia: Postop Eval II Evaluation Mental status: Awake and Calm Pain Level: 1 nausea: No Vomiting: No Complications Anesthesia Complication: No
== END 2024-03-30 08:55 | disposition home or self-care (01) ==
LOC: SDC 05:50 → AC 05:51
PROVIDERS: PCP Family Medicine; Referring Provider Orthopaedic Surgery; Visit Provider Orthopaedic Surgery
PROC: (CPT 64721; principal; 2024-03-30 07:15)
DX: G56.02 Carpal tunnel syndrome, left upper limb (principal); Z87.891 Personal history of nicotine dependence
CPT/HCPCS: 64721; 01810; J7120; J2405

== ENCOUNTER → 2024-04-13 | Outpatient (CLI) | payer MEDICARE, BC, SELFPAY | END | disposition home or self-care (01) | LOC: LABSPEC 11:55 | PROVIDERS: PCP Family Medicine; Referring Provider Family Medicine; Visit Provider Family Medicine | DX: N39.0 Urinary tract infection, site not specified (principal) | CPT/HCPCS: 87086; 87088; 87186 ==

== ENCOUNTER 2024-05-26 07:39 | Day surgery (SDC) | payer MEDICARE, BC, SELFPAY ==
[2024-05-26] VITALS (7 sets, daily range): BP systolic 107–127; BP diastolic 54–67; PULSE 73–80; RESP 16; TEMP 36.2–36.5; O2SAT 92–97; BMI 26.5
--- NOTE | 2024-05-26 07:58 | PRE.ANES_ITS ---
ASA Classification* ASA Classification ASA Classification: 2 Assessment & Plan Anesthesia* Anesthesia Assessment Anesthesia Assessment: Discussed sedation and/or anesthesia options, risks, benefits, and alternatives with patient/parents/legal guardian/POA. Questions invited. The patient/parents/legal guardian/POA seems to understand and agrees to proceed with anesthesia plan. Reviewed the physical assessment, medical history, allergy history and patient home medications list prior to surgery/procedure/anesthetic and documented any changes. Performed airway and anesthesia risk assessments. Anesthesia Type Anesthesia Type: MAC Anesthesia Focused Assessment* Airway Assessment Mouth opens: >3 cm Mallampati Score: II Focused Labs Anesthesia Preop lab: CBC WBC 6.4 K/mm3 (4.4-11.0) 03/26/22 10:32 RBC 3.93 M/mm3 (4.2-5.4) L 03/26/22 10:32 Hgb 11.7 g/dL (12.0-15.0) L 03/26/22 10:32 Hct 36.8 % (37-47) L 03/26/22 10:32 Plt Count 313 K/mm3 (150-450) 03/26/22 10:32 CHEMISTRY Potassium 4.5 mmol/L (3.5-5.1) 03/26/22 10:30 Sodium 141 mmol/L (136-145) 03/26/22 10:30 BUN 22 mg/dL (7-18) H 03/26/22 10:30 Creatinine 1.07 mg/dL (0.55-1.02) H 03/26/22 10:30 Glucose 83 mg/dL (74-106) 03/26/22 10:30 TSH 3.64 uIU/mL (0.358-3.74) 03/26/22 10:30 COAG Pre-Assessment Diagnosis/Proposed Procedure Planned Operative Procedure(s): RIGHT CARPAL TUNNEL RELEASE Anesthesia History Anesthesia History - airport guide: Anesthesia History - airport guide Hx Hospitalization No 05/18/24 14:45 Any Problems With Anesthesia No 05/18/24 14:45 Cholinesterase deficiency No 05/18/24 14:45 You/Your Family Experience No 05/18/24 14:45 fever (hyperthermia) with Relationship Recent Exposure to Contagious No 03/30/24 06:17 Disease Does patient have nerve No 05/18/24 14:45 stimulator Patient instructed to have device shut off --Does patient have Pacemaker or ICD? When Was Last Pacemaker Check QUESTION #4 FULL TEXT: You/Your Family Experience fever (hyperthermia) with Anesthesia Last Oral Intake Last Oral intake: Last Oral Intake NPO since Meds taken in AM with sips of water? Meds patient instructed to take am of surgery PONV PONV - airport guide: PONV - airport guide Female Yes 05/18/24 14:45 HX of Motion Sickness No 05/18/24 14:45 HX of N/V After Surgery No 05/18/24 14:45 Non-Smoker Yes 05/18/24 14:45 Duration of Surgery greater No 05/18/24 14:45 than 60 minutes Number of Risk Factors 2 05/18/24 14:45 PONV Score Moderate Risk 05/18/24 14:45 Height & Weight Height & Weight: Anesthesia: Height & Weight Height 5 ft 3 in 03/30/24 06:19 Respiratory Assessment Respiratory Assessment - airport guide: Respiratory Tract Infection Hx - airport guide Hx Respiratory Tract Infection No 05/18/24 14:45 STOP Sleep Apnea STOP Sleep Apnea - airport guide: STOP Sleep Apnea - airport guide Hx Hypertension No 05/18/24 14:45 Hx Sleep Apnea No 05/18/24 14:45 CPAP No 05/18/24 14:45 BIPAP No 05/18/24 14:45 Do you snore loudly (louder No 05/18/24 14:45 than talking or can be heard Do you often feel tired/ Yes 05/18/24 14:45 fatigued/ sleepy during daytime? Has anyone observed you stop No 05/18/24 14:45 breathing during sleep? STOP Results Negative 05/18/24 14:45 QUESTION #5 FULL TEXT : Do you snore loudly (louder than talking or can be heard through closed doors)? 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 Specify any problems Hx of Preganancy in last 3 No 05/18/24 14:45 Months Nurse Filling Out Transfusion [email or web address] 05/18/24 14:45 & Questions: Date: 05/18/24 05/18/24 14:45 Time: 14:47 05/18/24 14:45 Patient unable to answer at this time (ie. confused, unrespo /Reproduction History /Reproductive History - airport guide: /Reproductive Hx- airport guide Hx Now No 05/18/24 14:45 Gestational Age (in weeks): EDC: Hx Hx Para Hx Section SAB No 05/18/24 14:45 Active Medications Active Medications: Current Medications Generic Name Dose Route Start Last Admin Trade Name Freq PRN Reason Stop Dose Admin Cefazolin Sodium 2 gm/ Sodium 110 mls @ 150 mls/hr 05/26/24 13:50 Chloride IV 05/26/24 14:33 PREOP ONE Lactated Ringer's 1,000 mls @ 15 mls/hr 05/26/24 08:00 IV .Q48H NICO PFSH Medical History Wears glasses Post-menopausal Pyelonephritis History of renal disease Non-smoker Home Medications ?Medication ?Instructions ?Recorded ?Last Taken ?Type cholecalciferol (vitamin D3) 25 1,000 unit PO DAILY 01/08/14 03/09/24 History mcg (1,000 unit) capsule (Vitamin D3) ibuprofen 200 mg tablet (Motrin IB) 200 mg PO Q6H PRN pain 02/07/23 03/09/24 History pyridoxine (vitamin B6) 100 mg 100 mg PO QDAY 03/22/24 03/25/24 History tablet alpha lipoic acid 600 mg capsule 600 mg PO BID 05/18/24 Unknown History Allergy/AdvReac Type Severity Reaction Status Date / Time Sulfa (Sulfonamide Allergy Hives Verified 05/18/24 14:43 Antibiotics) Surgical History History of carpal tunnel release Hx of dilation and curettage Hx of colonoscopy Hx of eye surgery H/O hernia repair Social History Smoking Status: Never smoker Review of Systems (Anesthesia) ROS Narrative System reviewed and no additional complaints, except as documented.
[2024-05-26] MEDS: Lactated Ringers 1,000 ML 15 ML IV (08:02)
--- NOTE | 2024-05-26 09:16 | PCM.HP.BLA ---
History and Physical Date of Admission: 05/26/24 [facility] [id number] [place] [address] OFFICE VISIT Date of Service: 05/12/24 MR#: [id number] Acct: [id number] Name: LIAM SALINAS Rep #: [id number] : 1940 Provider: Dr. Bay Langley DO Age/Sex: 83/F Location: [facility] Status: Signed Intake Vital Signs 03/30/2406:19 Height 5 ft 3 in Intake Visit Reasons: RIGHT HAND Chief Complaint: B/L hand pain Allergies Sulfa (Sulfonamide Antibiotics) Allergy (Verified 05/12/24 09:09) Hives Medications ?Medication ?Instructions ?Recorded ?Confirmed ?Type cholecalciferol (vitamin D3) 25 1,000 unit PO DAILY 01/08/14 05/12/24 History mcg (1,000 unit) capsule (Vitamin D3) ibuprofen 200 mg tablet (Motrin IB) 200 mg PO Q6H PRN pain 02/07/23 05/12/24 History diphenhydramine 25 1 tab PO QHS PRN sedation 02/11/24 05/12/24 History mg-acetaminophen 500 mg tablet (Tylenol PM Extra Strength) pyridoxine (vitamin B6) 100 mg 100 mg PO QDAY 03/22/24 05/12/24 History tablet magnesium 250 mg tablet 400 mg PO DAILY 04/12/24 05/12/24 History Have you fallen in the past year?: No PFSH Medical History Wears glasses Post-menopausal History of steroid therapy Pyelonephritis History of renal disease Non-smoker Surgical History (Updated 04/12/24 @ 09:07 by Yesenia Cruz) History of carpal tunnel release Hx of dilation and curettage Hx of colonoscopy Hx of eye surgery H/O hernia repair Social History Smoking Status: Never smoker HPI RIGHT HAND Details: This documentation accurately reflects the service provided and the decisions made by me, Dr. Bay Langley, 05/12/24 0904. Part of today?s visit was documented by Gloria CARVAJAL, acting as scribe. LIAM SALINAS is a 83 year old F here today for bilateral hand. She states that regarding her left hand she is still have the numbness and tingling. She states that her index and middle finger are stuck together but they do come apart. She states for both hands ht feels like someone is rubbing sandpaper on them. She would also like to discuss having the right carpal tunnel release. As she is having significant numbness and tingling in the radial 3 and half digits. Ortho Exam General General: Yes no acute distress Neurologic: Yes alert and Yes oriented x3 Psychologic: Yes reasonable and appropriate Right Wrist/Hand Skin/Wound: No Ecchymosis and Yes capillary refill normal Right Wrist: Yes ROM-Extension 0-60, ROM-Flexion 0-80, ROM-Pronation 0-80 and ROM-Supination 0-90 WRIST: radial 3.5 digits symptoms Symptoms present at baseline so provocative maneuvers do not seem to do much Left Wrist/Hand Skin/Wound: No Ecchymosis, Yes nail intact, Yes capillary refill normal and No erythema Left Wrist: Yes ROM-Extension 0-60, Yes ROM-Flexion 0-80, Yes ROM-Pronation 0-80 and Yes ROM-Supination 0-90 WRIST: good abduction strength She has full finger and wrist range of motion there is no sign of infection. She has 5 out of 5 finger abduction and flexion and extension strength Head: Normocephalic Atraumatic Chest: symmetrical rise, non-labored breathing, no audible wheeze Abdomen: no guarding, non-rigid Supplemental Info 03/10/2024 EMG bilateral upper extremity: 1. Electrodiagnostic findings suggestive of bilateral median mononeuropathy. This is consistent with a severe left carpal tunnel syndrome and a mild to moderate right carpal tunnel syndrome Coding Level of Care Code Off vis,est,level 3 Diagnoses Carpal tunnel syndrome, bilateral G56.03 Assessment and Plan Assessment and Plan (1) Carpal tunnel syndrome, bilateral: Status: Acute Plan As we discussed preoperatively there can be permanent nerve damage here due to the severity of her carpal tunnel on her left hand. She does have atrophy which will not return. I would expect if any recovery to occur could take a prolonged several months to a year. In regards to her right hand she is requesting to have a carpal tunnel release surgery she understands risk benefits of the surgery same as last time Reviewed the pre-operative plans with the patient. Risks and benefits of the procedure were fully explained, including but not limited to infection, incisional hypersensitivity pillar pain and continued carpal tunnel symptoms neurovascular injury, continued pain, arthritis, stiffness, need for further surgery, re-injury, DVT, PE, general risks of anesthesia, and loss of limb or life. The patient understands all the risks and does wish to proceed with written consent. I do however expect a slightly better prognosis considering her EMG was not to the same severity on her right as it was on the left. Tentative surgery date May 26, 2024 Clinical Quality Measures Falls Risk Screening/Assistive Devices Have you fallen in the past year?: No 05/12/24 1009 <Electronically signed by Bay Langley DO> Date Bay Langley DO Cosigner Signature: Date (if applicable) CC: ~ I have examined the patient and the H&P has been reviewed. There are no clinical changes since date of exam.
[2024-05-26] MEDS: Cefazolin 2 GM in 0.9% Normal Saline (100mL Bag) 100 ML IV (09:22)
[2024-05-26] MEDS: Bupiv/Epi 0.25% 30 ML Vial (09:45)
--- NOTE | 2024-05-26 09:53 | OP.PCM_ITS ---
Operative Report Date of Procedure: 05/26/24 Preoperative diagnosis; right carpal tunnel syndrome Postoperative diagnosis; same Procedure: Right open carpal tunnel release Anesthesia: Local with MAC Tourniquet time; 10 minutes 250 mm Hg Complications: None Indication for procedure; This is a 83-year-old female with long-standing s ymptoms consistent with carpal tunnel syndrome the patient did have electrodiagnostic evidence of this and has failed conservative treatment. Risks benefits and alternatives were reviewed including risks of bleeding infection nerve artery tissue damage need for further surgery and continued pain and symptoms, hypersensitivity to scar and Pillar pain. Procedure; The patient was met in the preoperative holding area the operative extremity was identified by both patient and physician and was marked the patient was met by anesthesia and brought back to the operating room and transferred to the operating table in the supine position. Anesthesia was started. A well-padded tourniquet was placed on the operative upper extremity. The patient was prepped and draped in the usual sterile fashion. A timeout was called to ensure the proper patient procedure and extremity were being contemplated. 0.5 percent lidocaine with epinephrine was injected into the incisional area. An Esmarch was used to exsanguinate the extremity. The tourniquet was inflated to 250 mmHg. A midline incision was made with a 15 blade scalpel between the thenar and hypothenar eminence. This was carried down through the skin and subcutaneous tissue. Angela retractors were then used, a deep blade scalpel was used to make a deep incision in the palmar aponeurosis. The angela retractors were then placed deep to this and the transverse carpal ligament was identified a perforation was made with a scalpel and a Littler scissors were used to complete the release of the transverse carpal ligament distally under direct visualization with the tips facing ulnarly until the perivascular fat was reached. Then turning our attention proximally using a tension slide technique the proximal extent of the transverse carpal ligament was released . There was noted to be hourglass configuration to the median nerve and hypertrophy of the transverse carpal ligament without other findings. The wound was thoroughly irrigated and was closed with 4-0 nylon vertical mattress stitches. Dressing was applied in the form of xeroform 4 x 4, web roll and an raoul wrap. Tourniquet was let down there is no intraoperative complications patient tolerated the procedure well and was transferred to the PACU. All counts were correct.
--- NOTE | 2024-05-26 09:54 | DCINST_ITS ---
Discharge Instructions Diet Discharge Diet: No restrictions Dressing / Incision Call your doctor if you observe: Shortness of breath and Chest pain Additional Dressing/Incision Instructions:: Ice and elevate operative extremity next 72 hours. Keep dressing on clean and dry for 48 hours then may remove and allow warm soapy water to rinse over incision but do not submerge until sutures are out. Then apply bandaid over incision and change daily. encourage finger range of motion. Not lift more than 1/2 pound. Minimize narcotic use only as needed and directed, may use OTC NSAID and Tylenol to supplement/substitute for pain control. Follow Up Care Please Follow Up With: Bay Langley DO When: 2 weeks Test Results: Test results from this visit will be discussed in further detail at your follow- up appointment, if applicable. Discharge Plan Admission Primary Reason for Your Visit: Right carpal tunnel release Attending Provider: Bay Langley Primary Care Provider: Jorge Quiñonez Instructions Print Language: Guatemalan Discharge Orders/Prescriptions Prescriptions: New oxycodone 5 mg tablet 5 - 10 mg PO Q6H PRN (Reason: pain) 3 Days Qty: 7 0RF No Action ibuprofen [Motrin IB] 200 mg tablet 200 mg PO Q6H PRN (Reason: pain) pyridoxine (vitamin B6) 100 mg tablet 100 mg PO QDAY cholecalciferol (vitamin D3) [Vitamin D3] 1,000 UNIT capsule 1,000 unit PO DAILY Patient Comments: supplement alpha lipoic acid 600 mg capsule 600 mg PO BID Referrals / Follow Up: Jorge Quiñonez MD [Primary Care Provider] - Disposition Disposition (needs filled in before D/C Order can be placed): Home, Self Care
--- NOTE | 2024-05-26 10:01 | PCM.POST.ANE ---
Anesthesia: Postop Eval I Current Vital Signs Temperature: 97.2 F Pulse Rate: 80 Blood Pressure: 115/54 Respiratory Rate: 16 Pulse Ox: 94 Oxygen Delivery Method: Room Air Assessment Airway patent: Yes Spontaneous unlabored respirations: Yes Mental status: Awake and Calm nausea: No Vomiting: No Anesthesia Complication: No Fluid Hydration Crystalloid volume administer (ml): 400 Total IV fluid infused: 400 Progress Note Anesthesia document: Postop Eval 1 completed: Yes
--- NOTE | 2024-05-26 13:34 | POSTOPAN2_ITS ---
Anesthesia Postop Eval I Sum Postop Eval Completion status Anesthesia document: Postop Eval 1 completed: Yes Anesthesia Postop Eval I Summary Anesthesia Postop Eval I Summary: Anesthesia Postop Eval I: Assessment Summary Airway patent Yes 05/26/24 10:02 OVERNIGHT [email or web address] Spontaneous unlabored Yes 05/26/24 10:02 OVERNIGHT BABYSITTER.[email or web address] respirations Mental status Awake,Calm 05/26/24 10:02 OVERNIGHT [email or web address].[email or web address] nausea No 05/26/24 10:02 OVERNIGHT BABYSITTER.[email or web address] Vomiting No 05/26/24 10:02 OVERNIGHT BABYSITTER.[email or web address] Anesthesia Postop Eval I: Fluid Summary Crystalloid volume administer 400 05/26/24 10:02 OVERNIGHT BABYSITTER.GDOTT (ml) Colloids volume administered ( ml) Blood Product volume administered (ml) Total IV fluid infused 400 05/26/24 10:02 OVERNIGHT BABYSITTER.GDOTT Anesthesia Postop Eval I: Summary Notes Anesthesia Complication No 05/26/24 10:02 OVERNIGHT BABYSITTER.[email or web address] Anesthesia Complication Comment: Post-operative progress note Anesthesia: Postop Eval II Evaluation Mental status: Awake Pain Level: 0 nausea: No Vomiting: No
--- NOTE | 2024-05-26 13:34 | PCM.POSTANE2 ---
Anesthesia Postop Eval I Sum Postop Eval Completion status Anesthesia document: Postop Eval 1 completed: Yes Anesthesia Postop Eval I Summary Anesthesia Postop Eval I Summary: Anesthesia Postop Eval I: Assessment Summary Airway patent Yes 05/26/24 10:02 MANAGER [email or web address] Spontaneous unlabored Yes 05/26/24 10:02 MANAGER [email or web address].[email or web address] respirations Mental status Awake,Calm 05/26/24 10:02 MANAGER [email or web address].GDOTT nausea No 05/26/24 10:02 MANAGER [email or web address].GDOTT Vomiting No 05/26/24 10:02 MANAGER [email or web address].[email or web address] Anesthesia Postop Eval I: Fluid Summary Crystalloid volume administer 400 05/26/24 10:02 MANAGER [email or web address].GDOTT (ml) Colloids volume administered ( ml) Blood Product volume administered (ml) Total IV fluid infused 400 05/26/24 10:02 MANAGER [email or web address].[email or web address] Anesthesia Postop Eval I: Summary Notes Anesthesia Complication No 05/26/24 10:02 MANAGER [email or web address].GDOTT Anesthesia Complication Comment: Post-operative progress note Anesthesia: Postop Eval II Evaluation Mental status: Awake Pain Level: 0 nausea: No Vomiting: No
== END 2024-05-26 10:38 | disposition home or self-care (01) ==
LOC: SDC 09:54 → AC 09:59
PROVIDERS: PCP Family Medicine; Referring Provider Orthopaedic Surgery; Visit Provider Orthopaedic Surgery
PROC: (CPT 64721; principal; 2024-05-26 09:15)
DX: G56.03 Carpal tunnel syndrome, bilateral upper limbs (principal); Z87.19 Personal history of other diseases of the digestive system
CPT/HCPCS: 64721; J7120; J2405

== ENCOUNTER → 2024-06-04 | Outpatient (CLI) | payer MEDICARE, BC, SELFPAY | END | disposition home or self-care (01) | LOC: LABSPEC 09:21 | PROVIDERS: PCP Family Medicine; Visit Provider Family Medicine | DX: N39.0 Urinary tract infection, site not specified (principal) | CPT/HCPCS: 87086; 87088; 87186 ==

== ENCOUNTER 2024-06-10 13:57 | Outpatient (RCR) | payer MEDICARE, BC, SELFPAY ==
--- NOTE | 2024-06-11 06:58 | HP.OTEVAL_ITS ---
Patient's Visit Information Visit Information Visit Information: LIAM SALINAS is a 83 year old F, referred to Occupational Therapy by Dr. Bay Langley DO, with a diagnosis of CTS. Date of Evaluation: 06/10/24 Occupational Therapist: ROXANA Sinha/Qi, CHT Subjective Subjective: This 83 year old female was seen for OT Eval with dx of bilateral CTS. pt states she underwent sx on 03/30/24 for left CTR and 05/28/24 right CTR pt states for about 6 months or more she had symptoms. Pt states now when she touches objects feels like sand paper. pt states she would like to know what she can do to decrease this feeling and return to using bilateral hands with ADls and IADLs. Pain right hand: Current Pain Intensity: 3 Pain Intensity Range: 3 and 4 left hand: Current Pain Intensity: 3 Pain Intensity Range: 3 and 5 ROM Wrist: right 70/65 left 85/80 ROM Comments: demo full ROM Strength Reproduction Machine Loader: right NT left 20# Lateral Pinch: right NT left 6# Tripod Pinch: right NT left 6# Strength Comments: right not tested due to recent stich removal Sensation Thumb: right/Left 3.84 interpretation diminished protective sensation Index: right 3.22 diminished light touch/left 3.84 diminished protective sensation Middle: right/left 3.84 interpretation diminished protective sensation Ring: right/left 2.83 interpretation normal sensation Little: right/left 2.83 interpretation normal sensation Quick DASH-Disab of Arm,Shoulder& Hand Quick DASH Score: 59.0900 Goals Goal:: pt will demo a increase in bilateral supervisor mixing strength by 15# or greater to return pt to her PLOF. by d.c Goal:: pt will report no pain greater than 1/10 with use of hand with ADLs by dc Goal:: pt will test at 3.22 a diminished light touch or better ( 2.83 normal sensation) by d/c pt will demo understanding of visually compensating around hot/sharp objects to decrease risk of injury by end of 1st session. pt will demo understanding of median nerve glides by end of 1st session. pt will report a reduction of tingling by 50% in 4 weeks Goal:: pt will demo understanding of scar mtg by end of 1st session to decrease risk of scar hypertrophic/ or adhesions. Goal:: Pt will demo understanding of joint protection and ergonomics when performing BADLs and IADLs by d/c Pt will demo understanding of adaptive Equipment use to decrease stress on joints to allow pt to perform BADSL and IADLS at SOM level. Rehabilitation General Assessment: pt arrives following 11 weeks s/p from a left CTR and 2 weeks following a right CTR. Pt demo with newly healing incision, sensation deficits and weakness limiting pts return to ADLs at this time. pt would benefit from skilled OT services 3-4 visits to ensure pts understanding of HEP of median nerve glides, scar management, tendon glides, light PRE with left and initiation of strengthening with right at 4 weeks s/p as well as sensory desensitization and re-ed. pt would also benefit from ed. on nerve recovery following a release. PT to return in 4 weeks to check pts sensation with monofilaments and strength to ensure sensation is improving as well as pts return to her ADLs. PT demo understanding and agree to POC. Rehabilitation Potential: Good Anticipated Interventions Anticipated Interventions: Scar Care, Triggerpoint Release, Desensitization, Sensory Retraining, Modalities, Orthoses, Education re assistive Equipment, Education re Diagnosis and Home Program Other Interventions: nerve glides Visit Plan TEXT: Thank you for the opportunity to evaluate your patient. For Medicare and Medicare HMO plans, please review the plan of care and approve it. It will need to be FAXED BACK to us at [phone] for Medicare purposes. Please let me know if there are questions or concerns regarding this plan of care. Physician Signature: Date:
--- NOTE | 2024-09-07 08:53 | HP.OT.NRP ---
Patient Information Patient Information: LIAM SALINAS was seen in my office for initial evaluation on 06/10/24. The following Plan of Care was established for this patient: POC Established Plan: Continue POC: Come back in 1 month to test sensation. Anticipated Interventions Anticipated Interventions: Scar Care, Triggerpoint Release, Desensitization, Sensory Retraining, Modalities, Orthoses, Education re assistive Equipment, Education re Diagnosis and Home Program Other Interventions: nerve glides Last Seen Last Seen: This patient was last seen in our office 06/10/24. Pertinent comments regarding their Occupational therapy will appear below: pt was seen for 2 OT sessions her last scheduled session was a no-show: At this time pt has not rescheduled her apt and due to time lapse in services pt is d/c. At this point I will be discontinuing this patient from occupational therapy. I would be happy to see this patient again in the future if found appropriate by the physician. Thank you! Suyapa Deshpande, OTR/L, CHT
== END 2024-06-10 19:00 | disposition home or self-care (01) ==
LOC: OT 13:57
PROVIDERS: PCP Family Medicine; Referring Provider Orthopaedic Surgery; Visit Provider Orthopaedic Surgery
DX: G56.03 Carpal tunnel syndrome, bilateral upper limbs (principal)
CPT/HCPCS: 97110; 97140; 97166

== ENCOUNTER → 2024-09-21 | Outpatient (CLI) | payer MEDICARE, BC, SELFPAY ==
[2024-09-21 12:11] LABS: Absolute Lymphocyte Count 1.44 X10^3/uL (0.83-4.51); Absolute Neutrophil Count 4.5 X10^3/uL (2.0-7.7); Basophil# 0.05 X10^3/uL; Basophil% 0.7 % (0-1); Eosinophil# 0.63 X10^3/uL; Eosinophils% 9.1 % (0-5); Hematocrit 37.1 % (37-47); Hemoglobin 11.6 g/dL (12.0-15.0); Lymphocyte # 1.44 X10^3/ul (0.83-4.51); Lymphocyte % 20.7 % (19-41); Mean Corp Hgb Conc 31.3 g/dL (32-36); Mean Corpuscular Hgb 28.4 pg (27.0-32.0); Mean Corpuscular Volume 90.9 fL (81-99); Mean Platelet Vol. 9.3 fl (6.2-12.0); Monocyte# 0.32 X10^3/uL; Monocyte% 4.6 % (0-10); NRBC Flagged by Analyzer 0 % (0-5); Neutrophil # 4.48 X10^3/uL (2.7-7.7); Neutrophil % 64.6 % (47-70); Platelet Count 401 K/mm3 (150-450); RBC Distribution Width CV 14.2 % (11.6-14.6); RBC Distribution Width SD 47.4 fl (35.1-43.9); Red Blood Count 4.08 M/mm3 (4.2-5.4); White Blood Count 6.9 K/mm3 (4.4-11.0)
[2024-09-21 12:49] LABS: PTHIN 40.8 pg/mL (18.4-80.1)
[2024-09-21 13:04] LABS: Vitamin B12 247 pg/mL (211-911); Vitamin D,25 Hydroxy 31.2 ng/mL
[2024-09-21 13:10] LABS: ALB/GLOB Ratio 0.8 RATIO (0.9-2.4); AST(SGOT) 15 U/L (15-37); Alanine Aminotransfer ALT/SGPT 17 U/L (13-56); Albumin, Serum 3.4 g/dL (3.2-5.0); Alkaline Phosphatase 93 U/L (45-117); Anion Gap 3 (5-15); BUN 24 mg/dL (7-18); Calcium,Total 9.5 mg/dL (8.5-10.1); Chloride 106 mmol/L (98-107); Creatinine, Serum 0.89 mg/dL (0.55-1.02); EST Glomerular Filtration Rate 65 mL/min (>60); Est Glom Filt Rate - Afr Amer 78 mL/min (>60); Globulin 4.1 g/dL (2.2-4.2); Glucose 79 mg/dL (74-106); Potassium 4.1 mmol/L (3.5-5.1); Protein, Total 7.5 g/dL (6.4-8.2); Sodium Level 137 mmol/L (136-145)
== END | disposition home or self-care (01) ==
LOC: MFPLAB 09:35
PROVIDERS: PCP Family Medicine; Referring Provider Family Medicine; Visit Provider Family Medicine
DX: M81.0 Age-related osteoporosis without current pathological fracture (principal); G56.03 Carpal tunnel syndrome, bilateral upper limbs; L65.0 Telogen effluvium
CPT/HCPCS: 36415; 80053; 82306; 82607; 82746; 83970; 84443; 85025

== ENCOUNTER → 2025-03-31 | Outpatient (CLI) | payer MEDICARE, BC, SELFPAY ==
[2025-03-31 15:34] LABS: Hematocrit 37.9 % (37-47); Hemoglobin 11.9 g/dL (12.0-15.0); Immature Granulocytes Count 0.020 X10^3/uL (0.0-0.0); Mean Corp Hgb Conc 31.4 g/dL (32-36); Mean Corpuscular Volume 90.7 fL (81-99); Mean Platelet Vol. 9.5 fl (6.2-12.0); NRBC Flagged by Analyzer 0 % (0-5); Platelet Count 298 K/mm3 (150-450); RBC Distribution Width CV 14.1 % (11.6-14.6); RBC Distribution Width SD 47.2 fl (35.1-43.9); Red Blood Count 4.18 M/mm3 (4.2-5.4); White Blood Count 7.1 K/mm3 (4.4-11.0)
[2025-03-31 16:16] LABS: FOLATES,SERUM (FOLIC ACID) 10.90 ng/mL (4.60-34.80)
[2025-03-31 16:17] LABS: AST(SGOT) 22 U/L (<=31); Alanine Aminotransfer ALT/SGPT 11 U/L (<=34); Albumin, Serum 3.8 g/dL (3.4-4.8); Alkaline Phosphatase 89 U/L (35-104); Anion Gap 12 (5-15); BUN 16 mg/dL (4-19); BUN/Creat Ratio 16.1 RATIO (10-20); Calcium,Total 9.6 mg/dL (7.6-11.0); Carbon Dioxide 24.3 mmol/L (21.0-32.0); Chloride 104 mmol/L (98-108); Globulin 3.7 g/dL (2.2-4.2); Glucose 92 mg/dL (70-99); Potassium 4.5 mmol/L (3.3-5.1)
[2025-03-31 17:21] LABS: Vitamin B12 > 4000 pg/mL (180-914); Vitamin D,25 Hydroxy 26.0 ng/mL (30-100)
[2025-03-31 18:50] LABS: PTHIN 54 pg/mL (11-61)
== END | disposition home or self-care (01) ==
LOC: MFPLAB 12:04
PROVIDERS: PCP Family Medicine; Referring Provider Family Medicine; Visit Provider Family Medicine
DX: G56.03 Carpal tunnel syndrome, bilateral upper limbs (principal); L65.0 Telogen effluvium; M81.0 Age-related osteoporosis without current pathological fracture
CPT/HCPCS: 36415; 80053; 82306; 82607; 82746; 83970; 84443; 85025

== ENCOUNTER → 2025-04-15 | Outpatient (CLI) | payer MEDICARE, BC, SELFPAY ==
--- NOTE | 2025-04-15 12:11 | BI_ITS ---
EXAM: SCRN MAMM (CAD)W/ANN BILAT DATE: 04/15/2025 CLINICAL HISTORY: F, Age 84 y/o , SCREENING TECHNIQUE: SCRN MAMM (CAD)W/ANN BILAT COMPARISON: Prior exam(s) dated 04/10/2022, 09/15/2018. FINDINGS: TISSUE DENSITY: There are scattered areas of fibroglandular density. Bilateral Breast Mammographic Findings: No significant masses, calcifications or other abnormalities are identified. BI/SCRN MAMM (CAD)W/ANN BILAT IMPRESSION: There is no mammographic evidence of malignancy. OVERALL FINAL ASSESSMENT BI-RADS 1: NEGATIVE. RECOMMENDATION: Routine annual follow-up in 1 Year A letter with findings and recommendations will be mailed to the patient. Reading Location: [id number]
--- NOTE | 2025-04-15 12:11 | BI_ITS ---
EXAM: SCRN MAMM (CAD)W/ANN BILAT DATE: 04/15/2025 CLINICAL HISTORY: F, Age 84 y/o , SCREENING TECHNIQUE: SCRN MAMM (CAD)W/ANN BILAT COMPARISON: Prior exam(s) dated 04/10/2022, 09/15/2018. FINDINGS: TISSUE DENSITY: There are scattered areas of fibroglandular density. Bilateral Breast Mammographic Findings: No significant masses, calcifications or other abnormalities are identified. BI/SCRN MAMM (CAD)W/ANN BILAT IMPRESSION: There is no mammographic evidence of malignancy. OVERALL FINAL ASSESSMENT BI-RADS 1: NEGATIVE. RECOMMENDATION: Routine annual follow-up in 1 Year A letter with findings and recommendations will be mailed to the patient. Reading Location: [id number]
== END | disposition home or self-care (01) ==
LOC: OPBI 12:09
PROVIDERS: PCP Family Medicine; Referring Provider Family Medicine; Visit Provider Family Medicine
DX: Z12.31 Encounter for screening mammogram for malignant neoplasm of breast (principal)
CPT/HCPCS: 77063; 77067